=== PATIENT | male | born 1945 | race Caucasian/White ===

== ENCOUNTER 2018-05-06 09:01 | Observation (INO) | payer OTHER, MEDICARE ==
[2018-05-06] MEDS ORDERED: DIAZEPAM 5 MG TAB PO ONE (09:05)
[2018-05-06] MEDS ORDERED: NS 1,000 ML IV ONE (09:05)
[2018-05-06] MEDS ORDERED: FAMOTIDINE 20 MG TAB PO ONE (09:05)
[2018-05-06] MEDS ORDERED: diphenhydrAMINE 25 MG CAP PO ONE ×2 (09:05→09:39)
[2018-05-06] MEDS ORDERED: ASPIRIN EC 325 MG TAB PO ONE ×2 (09:05→09:40)
[2018-05-06] MEDS ORDERED: DIAZEPAM 5 MG TAB ONE (09:40)
[2018-05-06 09:51] LABS: PLATELET COUNT 281 10^3/uL (150-400)
[2018-05-06 09:58] LABS: INR 1.02 (0.83-1.16); PROTIME(PATIENT) 13.6 SEC (12.0-15.0)
--- NOTE | 2018-05-06 10:01 | CPEKG ---
Test Reason : OPEN Blood Pressure : / mmHG Vent. Rate : 065 BPM Atrial Rate : 065 BPM P-R Int : 194 ms QRS Dur : 101 ms QT Int : 408 ms P-R-T Axes : -50 -22 057 degrees QTc Int : 425 ms Sinus or ectopic atrial rhythm Borderline left axis deviation Confirmed by Uvaldo Berumen ([id number]) on 05/06/2018 10:00:47 AM Referred By: Wilfredo Mata Confirmed By:Uvaldo Berumen
--- NOTE | 2018-05-06 10:48 | PDPROPOC ---
Sedation Plan of Care Sedation Plan of Care: vital signs stable, mental status noted, patient educated of risks, benefits, alternatives, patient can tolerate sedation ASA Classification: ASA 3 Planned drugs: fentanyl, midazolam Mallampati Score: Class 3 Mallampati Reference Image: Patient passed 3-3-2 rule?: Yes
--- NOTE | 2018-05-06 10:49 | PDHPUP ---
History & Physical Update H&P update statement: This history and physical update is based on an assessment of the patient which was completed after admission or registration (within 24 hours), but prior to the surgery/procedure. H&P update: H&P reviewed & patient examined, no change in patient's condition since H&P completed (CCS Class IV angina as well as high risk stress test)
[2018-05-06] MEDS ORDERED: HEPARIN 10,000 UNIT/10 ML MDV (1,000 UNIT/ML) ONE (10:55)
[2018-05-06] MEDS ORDERED: IOPAMIDOL (ISOVUE-300) 100 ML BTL ONE ×3 (10:55→12:01)
[2018-05-06] MEDS ORDERED: LIDOCAINE 1% 300 MG/30 ML SDV ONE (10:55)
[2018-05-06] MEDS ORDERED: MIDAZOLAM 2 MG/2 ML VIAL ONE ×2 (10:55→12:25)
[2018-05-06] MEDS ORDERED: VERAPAMIL 5 MG/2 ML VIAL ONE (10:55)
[2018-05-06] MEDS ORDERED: fentaNYL 100 MCG/2 ML INJ ONE ×2 (10:55→12:25)
--- NOTE | 2018-05-06 11:32 | PDDXCAT ---
Diagnostic Cath Note - . Date: 05/06/18 Aluminum Polisher: Adolfo Indication: CCC Class III and IV angina on medical treatment, High-risk criteria on noninvasive testing (choose option below) High-risk criteria on non-invasive testing: stress-induced moderate-size multiple perfusion defects - Procedure Access: right wrist Procedure: left heart catheterization, coronary angiography, left ventriculogram , other (STENT OF LAD, DIAGONAL 1, AND DISTAL RCA/PROXIMAL PDA) - Materials Left Heart Cath size: 5F Left Heart Cath materials: JL3.5, JR4.0, pigtail - Findings-Left Heart Catheterization LM: The left main is 7mm in size and bifurcates into a LAD, and Circumflex system. LAD: The left anterior descending is 2.75 mm in size. There is a 40% proximal lesion. The first diagonal acts as a functional ramus vessel and is 2.5mm in size. There is a 95% lesion just proximal bifurcation point proximal to the Alpha and Beta branches. There is BREE II flow distal to that obstruction. There is a 70% obstruction in the mid LAD distal to the second diagonal takeoff. LCX: The left circumflex is 4mm in size proximally and co-dominant. There is a 40% lesion in the distal portion of the left circumflex. RCA: The right coronary artery is a 3mm vessel and co-dominant. The RCA gives rise to a PDA vessel and is codominant. There is a 40% lesion distal to the RV branch. There is a 95% obstruction of the PDA with BREE III flow. EDP: 18mmHg LVEF: 65% Wall motion: On the LV gram there is normal systolic LV function. The EF is 65% . There are no resting segmental wall motion abnormalities. 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 There is no gradient on pullback across the aortic valve. There is no evidence of dissection or aneurysm of the thoracic aorta. - Findings-Right Heart Catheterization AO: // Complications: NONE Estimated blood loss: <50ml Closure method: TR Band Assessment: The patient has severe [place] vessel coronary disease. The patient has a first diagonal off of the LAD that acts as a functional RAMUS vessel. There was a 95% lesion in the vessel on angiographic imaging. There was also a 70% obstruction in the mid LAD with BREE II flow. The mid PDA in the RCA had a 90% lesion with BREE III flow. Plan: Aspirin 81mg along with Plavix 75mg daily should be continued for at least 1 year following drug eluting stent implantation. No elective surgery for the first 3 months. Decisions to stop dual antiplatelet therapy before 1 year should involve our office [facility] ([phone]). Intervention: A 6 [place] CLS 3.5 guiding catheter was used for guide catheter support of the left coronary system. A 0.014" 180 cm Intuition Wire was advanced across the lesion in the LAD first diagonal under direct fluoroscopic and angiographic guidance. A 2.5 x 12mm Synergy drug eluting stent was advanced and deployed at a maximum pressure of 14ATM with 2 serial inflations. A 2.0 x 8mm Emerge balloon was advanced down a second Talent Sourcer guiding wire that was placed in the alpha branch of the diagonal and dilated with two serial inflations; the first with a maximum pressure of 15 ELTON for 6 seconds and the second at a maximum of 10 ELTON for 10 seconds. There was 5% residual post stent implantation with improvement in flow from BREE II to BREE III flow post stent implantation. A Talent Sourcer 50 Wire was advanced across the lesion in the mid LAD under direct fluoroscopic and angiographic guidance. A 2.5 x 12mm Synergy stent was advanced down the guiding wire and deployed just distal to the second diagonal takeoff with two serial inflations; the first with a maximum pressure of 14 ELTON for 20 seconds, and the second inflation for a maximum pressure of 14 ELTON for 10 seconds. There was 0% residual post stent implantation. A 6 [place] JR 4 guiding catheter was used for guide catheter support. A 0.014" 180 cm Intuition wire was advanced across the lesion in question under direct fluoroscopic and angiographic guidance. A 2.5 x 24mm Synergy stent was advanced across the lesion in the distal RCA and proximal PDA and deployed at a maximum pressure of 14 ELTON for 15 seconds. There was 0% residual post stent stenosis and BREE III flow pre and post stent implantation. The patient tolerated the procedure well with no immediate complications and returned to the post cath recovery unit in good and stable condition. Patient Problems: Problems Problem Status Onset Coronary artery disease Acute - ICD10 Problem Qualifiers (1) Coronary artery disease
[2018-05-06] MEDS ORDERED: NITROGLYCERIN 1,500 MCG/15 ML VIAL MISC ONE ×2 (12:11→12:27)
[2018-05-06] MEDS ORDERED: CLOPIDOGREL BISULFATE 75 MG TAB ONE (12:37)
[2018-05-06] MEDS ORDERED: OXYCODONE/APAP 5/325 TAB PO PRN (13:04)
[2018-05-06] MEDS ORDERED: NITROGLYCERIN 0.4 MG BTL SL PRN (13:04)
[2018-05-06] MEDS ORDERED: CLOPIDOGREL BISULFATE 75 MG TAB PO ONE (13:04)
[2018-05-06] MEDS ORDERED: LORazepam 2 MG/ML INJ IVP PRN (13:04)
[2018-05-06] MEDS ORDERED: ONDANSETRON 4 MG/2 ML VIAL IVP PRN (13:04)
[2018-05-06] MEDS ORDERED: HYDROCODONE/APAP 5/325 TAB PO PRN (13:04)
[2018-05-06] MEDS ORDERED: ATROPINE SULFATE 1 MG/10 ML SYR IVP PRN (13:04)
[2018-05-06] MEDS ORDERED: TEMAZEPAM 15 MG CAP PO PRN (13:04)
[2018-05-06] MEDS ORDERED: NS 1,000 ML IV SCH (13:15)
[2018-05-06] MEDS: ACETAMINOPHEN 325 MG TAB PO PRN (17:16)
[2018-05-07 04:52] LABS: PLATELET COUNT 250 10^3/uL (150-400)
[2018-05-07 07:55] VITALS: BP 128/80
[2018-05-07] MEDS: ACETAMINOPHEN 325 MG TAB PO PRN (08:17)
[2018-05-07] MEDS ORDERED: LISINOPRIL 20 MG TAB PO SCH (09:00)
[2018-05-07] MEDS ORDERED: ATORVASTATIN CALCIUM 40 MG TAB PO SCH (09:00)
[2018-05-07] MEDS ORDERED: amLODIPine BESYLATE 5 MG TAB PO SCH (09:00)
[2018-05-07] MEDS ORDERED: ASPIRIN EC 325 MG TAB PO SCH (09:00)
[2018-05-07] MEDS ORDERED: CLOPIDOGREL BISULFATE 75 MG TAB PO SCH (09:00)
--- NOTE | 2018-05-07 09:19 | CPEKG ---
Test Reason : OPEN Blood Pressure : / mmHG Vent. Rate : 049 BPM Atrial Rate : 049 BPM P-R Int : 228 ms QRS Dur : 100 ms QT Int : 453 ms P-R-T Axes : 041 -25 039 degrees QTc Int : 409 ms Sinus bradycardia Borderline prolonged WV interval Abnormal R-wave progression, early transition Confirmed by Uvaldo Berumen ([id number]) on 05/07/2018 9:18:58 AM Referred By: Wilfredo Mata Confirmed By:Uvaldo Berumen
--- NOTE | 2018-05-07 09:24 | CPEKG ---
Test Reason : OPEN Blood Pressure : / mmHG Vent. Rate : 068 BPM Atrial Rate : 068 BPM P-R Int : 212 ms QRS Dur : 100 ms QT Int : 416 ms P-R-T Axes : -28 -15 041 degrees QTc Int : 443 ms Sinus rhythm Borderline prolonged DC interval Borderline left axis deviation Confirmed by Uvaldo Berumen ([id number]) on 05/07/2018 9:24:12 AM Referred By: Wilfredo Mata Confirmed By:Uvaldo Berumen
--- NOTE | 2018-05-07 10:56 | GDS ---
[f rep st] DISCHARGE SUMMARY DISCHARGE DIAGNOSES: 1. Coronary artery disease status post stenting to the mid left anterior descending artery with a 2.5 x 12 mm Synergy drug-eluting stent. 2. Stenting to the first diagonal with a 2.5 x 12 mm Synergy drug-eluting stent. 3. Stenting to the distal RCA into the proximal PDA with a 2.5 x 24 mm drug- eluting stent. 4. Hyperlipidemia. HOSPITAL COURSE: For detailed H and P, please see prior dictation. Briefly, Humble Cornelius is a 72-year-old male who presented to our office with complaints of chest pain. He reported chest discomfort with minimal exertion, which was relieved with rest and nitroglycerin. He was initially seen at [facility] for chest pain, at which time, a nuclear stress test was done. It was reported abnormal per patient. Ultimately, the decision was made to proceed with an angiogram. This was performed by Dr. Wilfredo Mata on April. He was found to have diffuse disease. The left anterior descending artery had a 40% proximal lesion. The mid LAD had a 70% lesion which was stented with a 2.5 x 12 mm Synergy drug-eluting stent. The 1st diagonal had a 95% obstruction which was stented with a 2.5 x 12 mm drug-eluting stent. The left circumflex artery had mild disease with a maximal stenosis of 40%. The right coronary artery had distal disease with 95% stenosis that extended into the proximal PDA. This was stented with a 2.5 x 24 mm drug-eluting stent. His ejection fraction was measured to be normal. The following morning, the patient denied any chest discomfort or shortness of breath. He was monitored on telemetry and remained in normal sinus rhythm. His EKG revealed normal sinus rhythm. LABORATORY: Triglycerides 102, total cholesterol 138, LDL 70, HDL 48. PHYSICAL EXAMINATION: GENERAL: Patient appears in no acute distress. VITALS: Blood pressure 128/80, heart rate 64. Oxygen saturation 96% on room air. Afebrile. LUNGS: Clear to auscultation. No wheezes, rhonchi or crackles auscultated. CARDIAC: Regular rate and rhythm, without any significant murmurs , rubs or gallops appreciated. EXTREMITIES: Right wrist, where access was obtained for the angiogram, is clean and intact without any evidence of infection or hematoma. DISCHARGE MEDICATIONS: 1. Aspirin 325 mg daily. 2. Plavix 75 mg daily. 3. Amlodipine 5 mg daily. 4. Lisinopril 20 mg daily. 5. Lipitor 80 mg daily. 6. Vitamin B12 daily. 7. Omeprazole 20 mg twice daily. 8. Nitroglycerin p.r.n. for chest pain. 9. Vitamin C daily. 10. Vitamin B12 daily. PLAN: Humble is currently stable and ready for discharge home. He has been given risk precautions. He is aware that he needs to remain on aspirin and Plavix for a minimum of 1 year. Lifestyle modifications were discussed with him and his today. I think he would be a great candidate for cardiac rehab. He and his are also concerned about carotid disease given that he has had a new onset of a headache that began a few months ago. I have recommended a carotid ultrasound which can be ordered at our office at his followup visit. He will follow up with his primary care physician in regard to new headache. Greater than 30 minutes was spent coordinating the patient's care today. Jacey Peñaloza PA-c /[id number]/MODL MTDD
--- NOTE | 2018-05-07 14:15 | ASDISCHSUM ---
Discharge Information Plan Status:Home with No Needs Medically Cleared to Leave:05/06/2018 Discharge Date:05/07/2018 11:30 AM CM D/C Disposition:Home, Routine, Self-Care ADT D/C Disposition:Home, Routine, Self-Care Projected Discharge Date:05/07/2018 11:30 AM Transportation at D/C: Discharge Delay Reason: Follow-Up Date:05/07/2018 11:30 AM Discharge Slot: Final Diagnosis: Placement Information Patient Contact Information Contact Name:LISANDRO Relationship: Address:[address] City:[place] Alternate Phone: State/Zip Code:[place] [address] Email: Financial Information Financial Class:Medicare Primary Plan Desc:MEDICARE OUTPATIENT Primary Plan Number:[id number] Secondary Plan Desc:PETROS/DAVID SUPPLEMENT Secondary Plan Number:[id number] Assessment Information LACE LACE Length of stay for Answers: Less than 1 day current admission Acuity / Level of Answers: No Care: Did the patient have an inpatient admission? Comorbidities - select Answers: Other Notes: HTN all that apply # of Emergency department Answers: 0 visits in the last 6 months Score: 1 Date Signed: 05/07/2018 02:14 PM Electronically Signed By:Hanna Spence RN Intervention Information Intervention Type:*HYACINTH-Signed Date of Service:05/07/2018 10:29 AM Patient Type:Observation Staff Member:Clare Beatty Hours: Discipline: Severity: Comment:
== END 2018-05-07 11:30 | disposition home or self-care (01) ==
LOC: FCATH 09:01 → F2W 13:05
PROVIDERS: ADMIT Internal Medicine Cardiovascular Disease; ATTEND Internal Medicine Cardiovascular Disease
DX: I25.119 Atherosclerotic heart disease of native coronary artery with unspecified angina pectoris (principal); E78.5 Hyperlipidemia, unspecified; Z82.49 Family history of ischemic heart disease and other diseases of the circulatory system
CPT/HCPCS: 93005; 93458; C1725; C1769; C1874; C1887; C9600; C9601; J1644; J2250; J3010; Q9967

== ENCOUNTER 2018-05-20 08:53 | Emergency (ER) | payer OTHER, MEDICARE ==
[2018-05-20] MEDS ORDERED: TDAP ADULT 0.5 ML INJ (BOOSTRIX) IM ONE (09:11)
[2018-05-20] MEDS ORDERED: ACETAMINOPHEN 500 MG TAB PO ONE (09:18)
--- NOTE | 2018-05-20 09:18 | EDPHY ---
General - History Smoking Status: Former smoker Time Seen by Provider: 05/20/18 09:00 Narrative: CLINICAL IMPRESSION: Fall, conjunctival hemorrhage, facial laceration, finger laceration ASSESSMENT/PLAN: Patient is a 72-year-old male currently on Plavix who presents to the emergency department after sustaining a slip and fall on the ice complaining of left eye injury, facial laceration and left finger laceration. Patient is well appearing and in no acute distress. The fall was witnessed and there was no loss of consciousness. Patient is afebrile and nontoxic-appearing, he is in no acute distress on arrival. His neurological exam is grossly normal with no focal deficit. Examination reveals mild infra orbital edema and ecchymosis of the left side, skin tear inferior to left eye, conjunctival hemorrhage and conjunctival abrasion. Patient denies any vision loss or significant visual changes, slit-lamp exam with conjunctival abrasion and no evidence of significant corneal abrasion, hyphema, ulceration or globe injury. His extraocular movements were full and intact without evidence of entrapment. Patient also with with macerated laceration to the proximal phalanx of his left index finger which was repaired as discussed in the procedure note. CT head revealed no evidence of intracranial hemorrhage, skull fracture, orbital injury , retro-orbital hematoma or globe injury. History and physical examination is consistent with left conjunctival hemorrhage and abrasion, facial laceration and left finger laceration. There was no evidence of significant corneal ulceration, globe injury, retro-orbital hematoma, skull fracture, orbital fracture, deep structure involvement, tendinous injury or neurovascular compromise. 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 Patient will follow up with his primary care provider or the emergency department in 7-10 days for suture removal of his left pointer finger. Patient declined any need for pain medication in the emergency department or as an outpatient, he will continue all his other medications as prescribed. The patient was observed for a period of time, his neurological exam remained grossly normal with no focal deficit and he was at his baseline in regards to his mental status. The patient had no further concerns. The patient is well established with his PCP and will schedule follow-up appointment for Thursday for repeat examination. Strict return precautions were discussed- they will return to the emergency department for altered mentation, lethargy, vomiting, seizure, abnormal movements or for any other concerning symptom. Patient verbalizes understanding and is in agreement with this plan. DIFFERENTIAL DX: Head injury including but not limited to concussion, skull fracture, intraparenchymal contusion, subarachnoid, subdural and epidural hematoma. ED PROCEDURES: Procedure: Laceration repair. Verbal consent was obtained from the patient. The left finger laceration was anesthetized in the usual fashion with 1% lidocaine without epinephrine. The wound was irrigated, draped and explored to its base with a gloved finger. There were no deep structures involved. No tendon injury was identified. The wound was repaired with 6.0 Prolene as the skin was very friable. The wound repair was simple and required 13 sutures. There was an additional subcentimeter laceration identified distal to the MCP of the left pointer finger, a single 6 0 Prolene suture was placed here. The procedure was performed by myself. ED COURSE: 909: Discussed with Dr. Mancia CHIEF COMPLAINT: Facial laceration, left eye injury, left pointer finger pain HPI: Patient is a 72-year-old male with significant medical history of coronary artery disease on Plavix who presents to the emergency department after sustaining a fall just prior to arrival. Patient reports he when out to move his trash can, he accidentally stepped on some ice causing him to fall backwards pulling the can on top of him. Patient did hit his head on the ground , he also sustained injury from the garbage can hitting him in the face. Patient did not lose consciousness, he denies any severe headache, dizziness, focal weakness or ataxia. Patient does report some eye discomfort of the left eye. He denies any vision changes or vision loss. Patient also complains of left pointer finger laceration, denies any significant pain, numbness or tingling. Patient has not been experiencing any chest pain, shortness of breath or abdominal pain. He denies any neck or back pain. PAST MEDICAL HISTORY: Coronary artery disease, hypertension, hyperlipidemia and GERD Pertinent Past Surgical History: Angiogram Family History: Noncontributory Social History: Denies illicit drug use or smoking ROS: A full 10 point review of systems was negative except for those mentioned in HPI. PHYSICAL EXAM: General Appearance: Well-appearing, no acute distress HENT: Normocephalic. Patient with mild infra and lateral orbital edema and ecchymosis of the left side, approximately 1.5 cm laceration inferior to the left eye. External ears are normal. TMs are clear bilaterally evidence of hemotympanum. No Santana sign or raccoon eyes. No nasal bridge tenderness, nares are clear. Oropharynx clear is no erythema or exudates, no tonsillar hypertrophy or asymmetry. Dentition without abnormality. No malocclusion, no mandibular tenderness.] Eyes: PERRLA, EOMI intact without evidence of entrapment. Conjunctival hemorrhage noted to the left lateral and inferior conjunctiva. No acute vision change, nystagmus, swelling, discharge or photosensitivity. Conjunctiva pink, no pallor or injection. Visual reza = WNL. EOMI without evidence of entrapment. PERRLA. Slit lamp with no eyelid edema, blepharitis, or cellulitis. No hyphema, or hypopyon. Conjunctival hemorrhage left lateral and inferior. Slit-lamp early revealed conjunctival abrasion, no evidence of significant or obvious corneal abrasions or ulcers under fluorescein. Negative Goldy test. No cell and flare. No FB's with eyelid eversion. Neck: Supple, nontender, no lymphadenopathy, no midline pain, FROM. Respiratory: There are no retractions, lungs are clear to auscultation. Cardiac: Regular rate and rhythm, no murmurs or gallops. Gastrointestinal: Abdomen is soft, nontender, bowel sounds normal, no masses/ hernia, no rigidity, guarding or focal peritoneal findings. Skin: Laceration left finger. Warm, dry, no rashes, no nodules on palpation. Upper Extremities: Left pointer finger with irregular laceration in the shape of a cross along the radial aspect of the proximal phalanx. It is approximately 2.5 cm in length. Otherwise upper extremities with intact distal pulses, Full range of motion intact, no ecchymosis or edema. Lower Extremities: Intact distal pulses, No edema, No tenderness, No cyanosis, full range of motion intact, No calf tenderness bilaterally. MEDICAL DECISION MAKING: Patient was seen independently. Secondary supervising physician at time of evaluation was Dr. Mancia. Diagnosis: Head injury, facial laceration, conjunctival hemorrhage, finger laceration. New, requires workup Summary: See Assessment and Plan for summary of ED visit Clinical lab tests: Not applicable. Independent visualization of images, tracing, or specimens: Yes. Decision to obtain medical records or history from someone other than the patient: Yes, Review / Summarize previous medical records: No Discussed patient with another provider: Yes, Dr. Mancia Patient Progress: Stable. (Louisa Green) Discussion: I evaluated and participated in the management of the patient. My co-signature indicates that I have reviewed this chart and I agree with the findings and plan of care as documented. My personal H&P findings include: 72 year old male presenting after a fall. On plavix. No LOC. Left eye is patients primary concern. On exam, he has significant subconjunctival hemorrhage on the lateral left eye, no entrapment on exam, abrasions and partial thickness lacerations below the eye. Left index finger has a 2.5cm total length laceration which is suturable. No deep structure involvement. Slit lamp exam was also performed by myself; no corneal abrasion seen. Imaging studies included CT of head, negative for fracture or intracranial abnormalities. Laceration on hand repaired by EVERETT Green. (Tessa Mancia) - Objective Vital Signs: Initial Vital Signs Temperature (C) 36.9 C 05/20/18 08:56 Heart Rate 70 05/20/18 08:56 Respiratory Rate 16 05/20/18 08:56 Blood Pressure 133/86 H 05/20/18 08:56 O2 Sat (%) 97 05/20/18 08:56 O2 Delivery Mode Room Air Allergies/Adverse Reactions: No Known Allergies Allergy (Unverified 05/20/18 08:56) Home Medications: Medication Instructions Recorded Ascorbic Acid [Vitamin C 500 mg 2,500 mg PO BID 05/03/18 (*)] Atorvastatin Calcium 80 mg PO DAILY 05/03/18 Cyanocobalamin [Vitamin B12 (*)] 1,000 mcg PO DAILY 05/03/18 Lisinopril [Zestril 20 mg (*)] 20 mg PO DAILY 05/03/18 Nitroglycerin [Nitrostat 0.4 mg 0.4 mg SL Q5M PRN 05/03/18 (*)] Omeprazole 20 mg PO BID 05/03/18 amLODIPine BESYLATE [Norvasc 5 mg 5 mg PO DAILY 05/03/18 (*)] Aspirin EC [Aspirin EC 325 mg (*)] 325 mg PO DAILY tab 05/07/18 Clopidogrel Bisulfate [Plavix (*)] 75 mg PO DAILY #30 tab 05/07/18 Medications Given: Discontinued Medications Acetaminophen (Tylenol) 1,000 mg PO EDNOW ONE Stop: 05/20/18 09:19 Last Admin: 05/20/18 09:43 Dose: 1,000 mg Diphtheria/Tetanus/Acell Pertussis (Boostrix) 0.5 ml IM .ONCE ONE Stop: 05/20/18 09:12 Last Admin: 05/20/18 09:43 Dose: 0.5 ml Erythromycin (Erythromycin 0.5%) 1 albert LEFTEYE ONCE ONE Stop: 05/20/18 12:12 Last Admin: 05/20/18 13:04 Dose: 1 albert Tetracaine/Epinephrine/Lidocaine (Let Gel Topical) 1 ea TP EDNOW ONE Stop: 05/20/18 10:22 Last Admin: 05/20/18 10:41 Dose: 1 ea Departure - Departure Disposition: Home, Routine, Self-Care Clinical Impression: Conjunctival abrasion, Conjunctival hemorrhage of left eye, Facial laceration, Finger laceration Condition: Good Instructions: Erythromycin (Into the eye), Corneal Abrasion (ED), Facial Laceration (ED) Additional Instructions: DISCHARGE INSTRUCTIONS FROM YOUR DOCTOR Thank you for visiting our emergency department today. Please keep in mind that discharge from the emergency department does not mean that there is nothing wrong - it simply means that we have not identified an emergency condition that requires further evaluation or treatment in the hospital. You should always plan to follow up with primary care for re-evaluation of your condition in the next 2-3 days. Keep wound clean and dry for 24 hours. Then remove dressing, clean at least twice daily or when soiled with soap and water, apply antibiotic ointment and dressing. Do not soak the wound while the stitches are in place. Elevate hand as much as possible for the next 24 hours to decrease the swelling and pain. Wear the splint to immobilize the finger for the next 2-5 days to facilitate rapid healing. Anticipate suture removal in 7-10 days. Tylenol every 4-6 hours as directed as needed for pain. Do not exceed 4000 mg in 24 hours. Ibuprofen as directed every 6-8 hours with food as needed for pain. Stop for stomach upset. Do not exceed 2400 mg in 24 hours. Continue your regular medications as prescribed. As discussed the laceration was not deep enough to visualize the tendon today. It is unlikely a tendon injury is present and your tendon function is currently intact. However, if at any time, you feel a pop and have difficulty bending or straightening the finger, you should seek re-evaluation from a hand specialist urgently. Rest the eye. Avoid bright lights. Small abrasions may be treated with antibiotic drops or ointment alone. You were provided with [erythromycin] eye ointment--a 1/2 inch ribbon of ointment should be applied to the right eye three times per day for the next two days. Tylenol as directed as needed for pain. You received a 500 mg dose in the emergency department tonight. Do not exceed 4000 mg in 24 hours. Continue your regular medications as prescribed. Most abrasions heal within 2-3 days with no effect on vision. If abrasion becomes infected and spreads to the deeper tissues of the cornea, a corneal ulcer can result. This is serious because it can cause corneal scarring. Corneal scars interfere with light passing through the cornea, and cause a loss of vision in the involved eye. Call tomorrow morning and schedule to be seen by your primary care physician or Registered Massage Therapist for re-evaluation tomorrow. It is very important to keep that appointment. Not keeping the appointment could result in a severe eye infection or permanent loss of vision. If there is any problem scheduling the appointment , you must call back to this facility for assistance. SEEK MEDICAL CARE IF: You have continued pain, light sensitivity, sensation something is still in the eye, a scratchy feeling in one eye (or both), any kind of discharge develops from the involved eye after treatment or if the lids stick together in the morning, if you have the same symptoms in the morning as you did with the original abrasion days, weeks or months after the abrasion healed, visual disturbance, blurry vision, loss of vision, pain behind the eye, increased eye redness, redness or swelling around the eye, development of fever, chills, dizziness, weakness, fainting, vomiting, severe headache, skin rash, neck pain, neck stiffness, or for any other new, worsening or worrisome symptoms. Return for signs of wound infection ie: redness, swelling, drainage, foul odor, red streaks, fever, chills, pain, bleeding, if the stitches pop, if the wound opens, for numbness, tingling, weakness, discoloration of the finger, coolness of the finger, inability to move or bend the finger or for any other new, worsening or worrisome symptoms. People present with illnesses and injuries in different ways, and it is always possible that we have missed something. You may always return for re-evaluation if symptoms worsen or if they are not improving or if you develop new/different symptoms. Again, thank you for choosing our emergency department. We hope that you feel better. Referrals: Franky Pelaez [Primary Care Provider] - As per Instructions
[2018-05-20] MEDS ORDERED: PROPARACAINE 0.5% 15 ML OPHT DROP ONE (09:25)
[2018-05-20] MEDS ORDERED: FLUORESCEIN SODIUM 1 MG STRIP OP ONE (09:29)
[2018-05-20] MEDS ORDERED: LET GEL TOPICAL 1 EA SYR TP ONE (10:21)
[2018-05-20] MEDS ORDERED: SKIN ADHESIVE (DERMABOND) 1 EACH TP ONE (11:12)
[2018-05-20] MEDS ORDERED: ERYTHROMYCIN 0.5% 1 GM OPHT.OINT LEFTEYE ONE (12:11)
[2018-05-20 13:26] VITALS: BP 119/80
== END 2018-05-28 13:30 | disposition home or self-care (01) ==
PROC: 0HQGXZZ Repair Left Hand Skin, External Approach (ICD-10-PCS; principal; 2018-05-20)
DX: S61.211A Laceration without foreign body of left index finger without damage to nail, initial encounter (principal); S01.81XA Laceration without foreign body of other part of head, initial encounter; S05.02XA Injury of conjunctiva and corneal abrasion without foreign body, left eye, initial encounter; H57.89 Other specified disorders of eye and adnexa; Z23 Encounter for immunization; W19.XXXA Unspecified fall, initial encounter; Y92.9 Unspecified place or not applicable; Y99.9 Unspecified external cause status; Y93.9 Activity, unspecified; Z87.891 Personal history of nicotine dependence

== ENCOUNTER → 2018-06-03 | Outpatient (CLI) | payer OTHER, MEDICARE | LOC: BHFA 15:30 | PROVIDERS: ATTEND Internal Medicine Interventional Cardiology | DX: R09.89 Other specified symptoms and signs involving the circulatory and respiratory systems (principal); I25.10 Atherosclerotic heart disease of native coronary artery without angina pectoris ==